=== PATIENT | female | born 1935 | race Caucasian/White ===

== ENCOUNTER 2016-08-02 11:25 | Outpatient (CLI) | payer MEDICARE, BC ==
[~2016-08-02] VITALS: Ht 172.7 cm; Wt 41.8 kg
--- NOTE | ~2016-08-02 | HEMODYNAMI ---
PATIENT:LORENE BRINK MEDICAL RECORD: [id number] : 31 LOCATION:[facility] ADMISSION DATE: 08/02/16 Generatedon:08/02/201614:35 Patient name: LORENE BRINK Patient #: [id number] SSN: : 1935 Date of study: 08/02/2016 Page: Of Hemodynamic Procedure Report Patient Data Patient Demographics Procedure consent was obtained First Name: LORENE Gender: Female Last Name: KEENA : 1935 [facility] Initial: STACY Age: 81 year(s) Patient #: [id number] Race: Unknown Additional ID: [id number] Contact details [address]: [address] [place] [address] State: [place] City: [place] Zip code: [address] Past Medical History Allergies: No known allergies Admission Admission Data Admission Date: 08/02/2016 Admission Time: 11:25 Admit Source: Other Insurance Payor: Private health insurance, Medicare Height (in.): 68 BSA: 1.47 (m2) Height (cm.): 172.72 BMI: 14.02 (kg/m2) Weight (lbs.): 92.18 Weight (kg.): 41.81 Lab Results Lab Result Date: 08/02/2016 Lab Result Time: 0:00 Coagulation Name Units Result Min Max INR units 1.27 --(----)-* 0.85 1.17 PT sec 31.6 --(----)-* 11.6 15 Procedure Procedure Types Cath Procedure Diagnostic Procedure PPM/ICD PPM Generator Exg. Single Procedure Description Procedure Date Procedure Date: 08/02/2016 Procedure Start Time: 14:16 Procedure End Time: 14:34 Procedure Staff Name Function Amadou Munoz MD Performing Physician Tom Shaw MD Performing Physician Gamal Pineda RT Scrub Prince Matias RT Scrub Brissa Finch RN Nurse Ashkan Robbins RT Monitor Abraham Waite RN Radar Repairer Procedure Data Cath Procedure Fluoroscopy Diagnostic fluoroscopy Total fluoroscopy Time: 0 time: 0 min min Diagnostic fluoroscopy Total fluoroscopy dose: 0 dose: 0 mGy mGy Contrast Material Contrast Material Type Amount (ml) Isovue 300 0 Estimated blood loss: 5 ml Procedure Complications No complications Procedure Medications Medication Administration Route Dosage Oxygen NC 3 l/min Lidocaine 1% with added to field 20 ml Epi Bupivacaine 0.5% S.Q. 10 ml Ancef (1Gm/50ml NS) I.V.P.B 1 g Ancef Irrigation Topical 1 g (1gm/500ml NS) Versed I.V. 0.5 mg Fentanyl I.V. 25 mcg Versed I.V. 0.5 mg Fentanyl I.V. 25 mcg Oxygen NC 3 Oxygen NC 3 l/min Hemodynamics Rest BSA: 1.47 (m2) O2 Consumption: Estimated: 142.6 (ml/min) O2 Consumption indexed: Estimated:97.01 (ml/min/m) Heart Rate: 90 (bpm) Snapshots Pre Cath Intra NCS Post Cath Vital Signs Time Heart Resp SPO2 etCO2 [id number] NIBP (mmHg) Rhythm Pain Sedation Rate (ipm) (%) (mmHg) (mmHg) Status Level (bpm) 14:09:29 89 29 96 0 0 134/77(93) NSR 0 (11) 10(A) , No pain 14:12:25 95 27 92 0 0 133/80(107) NSR 0 (11) 10(A) , No pain 14:16:31 98 22 92 0 0 125/80(106) NSR 0 (11) 10(A) , No pain 14:20:36 85 18 91 0 0 126/69(94) NSR 0 (11) 10(A) , No pain 14:24:38 94 22 96 0 0 128/84(104) NSR 0 (11) 10(A) , No pain 14:28:44 97 18 98 0 0 123/71(98) NSR 0 (11) 10(A) , No pain 14:32:46 90 27 97 0 0 131/75(102) NSR 0 (11) 10(A) , No pain Medications Time Medication Route Dose Verified Delivered Reason Notes Eff ectiveness by by 14:00:12 Ancef I.V.P.B 1 g Tom Brumfield used for (1Gm/50ml Valeria Finch refrigerator mover NS) 14:07:45 Oxygen NC 3 l/min Yazidi Buffie used for Valeria Finch refrigerator mover 14:07:52 Lidocaine added 20 ml Tom charles local 1% with Epi to Valeria Shaw MD anesthetic field 14:08:02 Bupivacaine S.Q. 10 ml Tom Santos for local 0.5% Valeria Shaw MD anesthetic 14:08:20 Ancef Topical 1 g Yazidi Buffie used for Irrigation Valeria Finch RN procedure (1gm/500ml NS) 14:16:08 Versed I.V. 0.5 mg Yazidi Buffie for Valeria Finch RN sedation 14:16:13 Fentanyl I.V. 25 mcg Yazidi Buffie for Valeria Finch RN sedation 14:19:29 Oxygen NC 3 Yazidi Buffie used for l/min-off Valeria Finch RN procedure 14:22:39 Oxygen NC 3 l/min Yazidi Buffie used for Valeria Finch refrigerator mover 14:24:15 Versed I.V. 0.5 mg Yazidi Buffie for Valeria Finch RN sedation 14:24:18 Fentanyl I.V. 25 mcg Yazidi Buffie for Valeria Finch RN sedation Procedure Log Time Note 13:15:28 Abraham Waite RN sent for patient. Start room use. 13:49:35 Informed consent obtained and on chart 13:53:35 Time tracking: Regular hours 13:53:38 Plan of Care:Hemodynamics will remain stable., Cardiac rhythm will remain stable., Comfort level will be maintained., Respiratory function will remain adequate., Patient/ family verbilizes understanding of procedure., Procedure tolerated without complication., Recovers from procedure without complications.. 13:53:44 Patient received from Outpatients to [facility] 2 Alert and oriented. Tansferred to table in Supine position. 13:53:45 Warm blankets applied, and jovanni hugger turned on for patient comfort. 13:53:45 Correct patient and procedure confirmed by team. 13:53:46 ECG and BP/O2 sat monitors applied to patient. 14:00:12 Ancef (1Gm/50ml NS) 1 g I.V.P.B was given by Brissa Finch RN; used for procedure; 14:07:45 Oxygen 3 l/min NC was given by Brissa Finch RN; used for procedure; 14:07:52 Lidocaine 1% with Epi 20 ml added to field was given by Tom Shaw MD; for local anesthetic; 14:08:02 Bupivacaine 0.5% 10 ml S.Q. was given by Tom Shaw MD; for local anesthetic; 14:08:20 Ancef Irrigation (1gm/500ml NS) 1 g Topical was given by Brissa Finch RN; used for procedure; 14:11:29 Vital chart was started 14:11:32 Baseline sample Acquired. 14:11:40 Rhythm: paced 14::44 Pre-procedure instructions explained to patient. 14::44 Pre-op teaching completed and patient verbalized understanding. 14:11:45 Family in waiting room. 14:11:46 Patient NPO since Midnight. 14:11:52 Patient allergic to No known allergies 14:11:54 Is the patient allergic to Iodine/contrast media? No. 14:12:32 Is patient on blood thinner?Yes 14:12:35 ACC The patient was administered the following blood thiners within the last 24 hours: Coumadin 14:12:41 Previous problem with sedation/anesthesia? No ? 14:12:42 Snore? No 14:12:43 Sleep apnea? No 14:12:45 Deviated septum? No 14:12:45 Opens mouth fully? Yes 14:12:46 Sticks out tongue? Yes 14:12:47 Airway obstruction? No ? 14:12:52 Dentures? Yes in tight 14:12:59 Patient pain scale 0/10 ?. 14:13:16 IV patent on arrival in left hand with 0.9% NaCl at [facility]. 14:14:47 Lab Result : PT 31.6 sec 14:14:47 Lab Result : INR 1.27 units 14:14:50 Lab results completed and on chart. 14:14:55 Right chest area was prepped with chlora-prep and draped in sterile fashion 14:14:57 Alarms reviewed by R. N. 14:14:58 Sharps counted by scrub and verified by R.N. 14:14:59 --------ALL STOP TIME OUT------ 14:14:59 Final Timeout: patient, procedure, and site verified with staff and physician. All members of the team are in agreement. 14:15:04 Right chest site verified by team. 14:15:07 Physical assessment completed. ASA score P 3 - A patient with severe systemic disease as per Tom Shaw MD. 14:15:13 Sedation plan: IV Moderate Sedation Versed, Fentanyl, Lidocaine 14:15:19 Use device set Pacemaker Set 14:15:39 2.0 Ticron Multipack opened to sterile field. 14:15:51 5.0 Monocryl [id number] opened to sterile field. 14:16:02 3.0 Vicryl Multipack [id number] opened to sterile field. 14:16:03 Mepilex Dressing opened to sterile field. 14:16:08 Versed 0.5 mg I.V. was given by Brissa Finch RN; for sedation; 14:16:11 Procedure started. 14:16:12 Full Disclosure recording started 14:16:13 Fentanyl 25 mcg I.V. was given by Brissa Finch RN; for sedation; 14:17:22 [employer] financial services sales representative Aleks Maher present for procedure. 14:17:48 Pre sharps counted by scrub and verified by RN: Sutures: 14 Sponges: 5 Stick needles: 0 Skin needles: 2 Blade: 1 Cautery: 1 14:18:30 Grounding pad site Left thigh. 14:18:31 Grounding pad site free from injury. 14:18:36 Lidocaine 1% w/epi to right subclavicular area by Tom Shaw MD. 14:18:39 Incision made to right subclavicular area. 14:18:50 Generator pocket made/opened. 14:19:13 Medtronic Adapta PPM Single Generator opened to sterile field. 14:19:29 Oxygen 3 l/min-off NC was given by Brissa Finch RN; used for procedure; 14:19:53 Previous PPM was a dual lead. Pt is being switched to a sinlge lead. Atrial lead will be capped. 14:20:26 PPM Dual was removed.. 14:20:30 PPM Single was inserted subcutaneously to right chest. 14:22:17 Device pocket was irrigated with Ancef. 14:22:39 Oxygen 3 l/min NC was given by Brissa Finch RN; used for procedure; 14:23:22 Generator was sutured in place with 2-0 ticron. 14:23:32 Subcutaneous closure was completed with 3-0 vicryl. 14:23:40 Skin closure was completed with 5-0 monocryl. 14:24:15 Versed 0.5 mg I.V. was given by Brissa Finch RN; for sedation; 14:24:18 Fentanyl 25 mcg I.V. was given by Brissa Finch RN; for sedation; 14:28:27 Parameters-- Generator: Mode: VVIR. Lower Rate: 60bpm. Upper Rate: 130bpm. 14:30:21 Parameters--Ventricular P/R Wave: 12.7mV. Current: 0.5mA; Threshold: .7V; Impedence: 619OHMS. 14:30:24 Rt Chest incision was dressed with Mepilex dressing. 14:31:00 H&P Date Dictated: 07/26/2016 Within 30 days and on chart., H&P Addendum completed by physician on day of procedure. (MUST COMPLETE FOR ALL OUTPATIENTS). 14:31:04 Admit Source: Other 14:31:21 Patient Height : 68 inches 14:31:26 Patient Weight : 92.18 lbs 14:31:40 Insurance Payor : Private health insurance, Medicare 14:31:56 Procedure ended.(Physican Out) 14:33:01 Fluoroscopy time 00.00 minutes. 14:33:03 Fluoroscopy dose: 0 mGy 14:33:03 Flurop Dose total: 0 14:33:06 Contrast amount:Isovue 300 0ml. 14:33:07 Sharps counted by scrub and verified by R.N. 14:33:13 Insertion/operative site no bleeding no hematoma. 14:33:18 Post-op/insertion site Right Chest area dressed using a Mepilex dressing. 14:33:32 Post Chest area:stable, clean and dry 14:33:34 Post Procedure Pulses reassessed and unchanged 14:33:38 Post-procedure physical assessment completed. ASA score P 3 - A patient with severe systemic disease as per Tom Shaw MD. 14:33:40 Post procedure rhythm: unchanged. 14:33:42 Estimated blood loss: 5 ml 14:33:44 Post procedure instruction explained to patient.Patient verbalizes understanding. 14:33:44 Patient needs reinforcement of post procedure teaching. 14:34:22 Procedure and supply charges have been captured, reviewed, submitted and are correct. 14:34:24 Procedure Complication : No complications 14:34:32 Vital chart was stopped 14:34:32 See physician's report for complete and final results. 14:34:48 Report given to Post Procedure Room. 14:34:51 Patient transfered to Post Procedure Room with Stretcher. 14:34:53 Procedure ended. 14:34:53 Full Disclosure recording stopped 14:34:57 End room use (Document Last) Device Usage Item Name Manufacture Quantity Catalog Hospital Part Current Minimal Lo t# / Number Charge Number Stock Stock Serial# Code 2.0 Ethicon 0 [id number] 5 Ticron Multipack 5.0 Ethicon 1 [id number] 5 Monocryl [id number] 3.0 Ethicon 1 [id number] [id number] 5 Vicryl Multipack [id number] Mepilex Schroeder 1 [id number] 5 [facility] Medtronic Medtronic 1 [id number] 5 Adapta PPM Single Generator Signature Audit [place] Stage Time Signature Unsigned Intra-Procedure 08/02/2016 Gamal Pineda 2:35:16 PM RT(R) Signatures Monitor : Ashkan Robbins RT Signature : Date : Time : [place] [id number] [facility] [place] [address]
[~2016-08-02 11:25] MED LIST: BAYER CHEWABLE81 MG PO; BREO ELLIPTA 11 EACH INH; COUMADIN1 MG PO; COUMADIN3 MG PO; GABAPENTIN100 MG PO; HYDROCODON-ACE1 EAC7 PO; HYDROCODONE-APA1 TAB PO; IPRAT-ALBUT 0.5-3 ML UPD; K-TAB10 MEQ PO; LASIX40 MG PO; LASIX80 MG PO; LEXAPRO10 MG PO; LEXAPRO5 MG PO; LOPRESSOR25 MG PO; METOPROLOL TAR100 M1 PO; METOPROLOL TART25 MG PO; NAMENDA5 MG PO; PULMICORT0.5 MG/21 UPD; RESTORIL7.5 MG PO; SYNTHROID100 MCG PO; TESSALON PERLE100 MG PO; TOPROL XL50 MG PO
[2016-08-02] MEDS ORDERED: PREDNISONE2.5 MG PO (12:49)
[2016-08-02 13:01] VITALS: BP 132/48; Ht 172.7 cm; Wt 41.8 kg
[2016-08-02 13:15] LABS: HEMATOCRIT 40.6 % (36.0-48.0); HEMOGLOBIN 12.6 g/dL (12-16); MCH 28.4 pg (26.0-34.0); MCV 91.6 fL (80.0-100.0); MEAN PLATELET VOLUME 9.3 fL (7.4-10.4); RBC 4.43 10x6/uL (4.00-5.40); RDW 15.5 % (11.5-14.5); WBC 9.3 10x3/uL (4.8-10.8)
[2016-08-02 13:19] LABS: CALC OSMOLALITY 284 mosm/kg (275-300); CARBON DIOXIDE 35.2 mmol/L (21.0-32.0); CHLORIDE - SERUM 101 mmol/L (98-107); CREATININE - SERUM 0.5 mg/dL (0.6-1.3); GLUCOSE 96 mg/dL (74-106); POTASSIUM - SERUM 5.1 mmol/L (3.5-5.1); SODIUM 140 mmol/L (136-145); UREA NITROGEN 29 mg/dL (7-18); eGFR NON AFRICAN AMERICAN > 90 mL/min (90-120)
[2016-08-02 13:59] LABS: APTT 31.6 SECONDS (22.8-39.4); INR 1.27 (0.85-1.17); PROTIME 15.8 SECONDS (11.6-15.0)
[2016-08-02] MEDS ORDERED: HYDROCODONE-APA1 TAB PO (14:31)
--- NOTE | 2016-08-02 14:47 | NUR ---
REC'D TO CATH RECOVERY, ALERT, ORIENTED X4. ATTACHED TO MONITORS. VITAL SIGNS STABLE. RIGHT CHEST DRESSING, CDI. O2 @ 3L NASAL CANNULA, NO DISTRESS NOTED.
--- NOTE | 2016-08-02 15:02 | NUR ---
RESTING IN BED, VITAL SIGNS STABLE. RIGHT CHEST DRSG CDI. NO C/O NAUSEA OR CHEST PAIN. WILL CONTINUE TO MONITOR.
--- NOTE | 2016-08-02 15:32 | NUR ---
RESTING IN BED WITH EYES CLOSED.. VSS, RIGHT CHEST DRSG CDI. WILL CONTINUE TO MONITOR.
--- NOTE | 2016-08-02 16:10 | NUR ---
HOB ELEVATED 45 DEGREES.. PT SLEEPY BUT RESPONDS TO VERBAL STIMULI. VSS. WILL CONTINUE TO MONITOR.
--- NOTE | 2016-08-02 16:12 | NUR ---
IV D/C'D WITH CATHETER INTACT. DISCHARGE INSTRUCTIONS GIVEN. PT AND FAMILY MEMBER VERBALIZED UNDERSTANDING.
--- NOTE | 2016-08-02 16:17 | NUR ---
UP TO SIDE OF BED TO GET DRESSED.
--- NOTE | 2016-08-03 13:46 | OP ---
PATIENT NAME: LORENE BRINK MEDICAL RECORD: [id number] :31 LOCATION:D.CAT ADMISSION DATE: SURGEON: MARLA ROMERO MD DATE OF OPERATION: 08/02/2016 PREOPERATIVE DIAGNOSES: 1. End-of-life generator. 2. Atrial fibrillation. 3. Congestive heart failure. 4. Hypertension. 5. Protein deficient malnutrition. POSTOPERATIVE DIAGNOSES: 1. End-of-life generator. 2. Atrial fibrillation. 3. Congestive heart failure. 4. Hypertension. 5. Protein deficient malnutrition. PROCEDURE: Right subclavian vein pacemaker generator exchange. SURGEON: Marla Romero MD REPORT OF PROCEDURE: The patient's chest was prepped and draped in sterile fashion. A total of 17 mL 1% lidocaine mixed with 0.25% Marcaine were infused into the surrounding tissues. A skin incision was made overlying the pacemaker. The pacemaker was eviscerated from the wound. A dual lead pacemaker was present. We disconnected the pacemaker leads. We capped off the atrial lead and then placed a single lead pacemaker into the ventricular lead dysfunction appropriately. We sutured the pacemaker down using 0 Ti-Cron. The subcutaneous tissues were irrigated out and then reapproximated with interrupted 3-0 Vicryls and the skin was closed with running subcutaneous 5-0 Monocryl. COMPLICATIONS: None. CONDITION: Stable. ANESTHESIA: Local MAC. BLOOD LOSS: Minimal. TRANSINT:[id number] Voice Confirmation ID: [id number] DOCUMENT ID: [id number] MARLA ROMERO MD at 1346 CC: RODRIGUE GONSALEZ M.D. [id number] DICTATION DATE: 08/02/16 1434 NOTCH GRINDER: 08/02/16 1456 DEP CLI 08/02/16 [place] [id number] [place] [id number]
== END 2016-08-02 16:20 | disposition home or self-care (01) ==
LOC: D.CATH 11:25
PROVIDERS: Internal Medicine Cardiovascular Disease
DX: Z45.010 Encounter for checking and testing of cardiac pacemaker pulse generator [battery] (principal); I48.91 Unspecified atrial fibrillation; I50.9 Heart failure, unspecified; I10 Essential (primary) hypertension; E46 Unspecified protein-calorie malnutrition; Z68.1 Body mass index [BMI] 19.9 or less, adult

== ENCOUNTER 2016-08-03 09:10 | Emergency (ER) | payer MEDICARE, BC ==
[2016-08-02 13:01] VITALS: BMI 14.0
[~2016-08-03 09:10] MED LIST changes: +PREDNISONE2.5 MG PO
[2016-08-03 10:40] LABS: BASOPHILS 0.2 % (0.0-2.0); EOSINOPHILS 0.7 % (0-7); HEMATOCRIT 35.7 % (36.0-48.0); IMMATURE GRANULOCYTES 0.2 % (0-5); LYMPHOCYTES 16.4 % (15-50); MCH 28.1 pg (26.0-34.0); MCHC 30.8 g/dL (31.0-37.0); MCV 91.3 fL (80.0-100.0); MEAN PLATELET VOLUME 9.1 fL (7.4-10.4); MONOCYTES 13.1 % (2-11); NEUTROPHILS 69.4 % (40-80); PLATELET COUNT 165 10x3/uL (130-400); RBC 3.91 10x6/uL (4.00-5.40); RDW 15.5 % (11.5-14.5)
[2016-08-03 10:49] LABS: CARBON DIOXIDE 36.2 mmol/L (21.0-32.0); CHLORIDE - SERUM 102 mmol/L (98-107); GLUCOSE 110 mg/dL (74-106); SODIUM 141 mmol/L (136-145)
[2016-08-03 10:50] LABS: CALC OSMOLALITY 284 mosm/kg (275-300); CREATININE - SERUM 0.7 mg/dL (0.6-1.3); POTASSIUM - SERUM 4.1 mmol/L (3.5-5.1); UREA NITROGEN 20 mg/dL (7-18); eGFR NON AFRICAN AMERICAN 85 mL/min (90-120)
[2016-08-03 10:51] LABS: APTT 31.5 SECONDS (22.8-39.4); INR 1.18 (0.85-1.17); PROTIME 14.9 SECONDS (11.6-15.0)
== END 2016-08-03 11:53 | disposition home or self-care (01) ==
LOC: D.ER 09:10
PROVIDERS: Physician Assistant Medical
DX: S80.812A Abrasion, left lower leg, initial encounter (principal); X58.XXXA Exposure to other specified factors, initial encounter; Y93.84 Activity, sleeping; Y92.013 Bedroom of single-family (private) house as the place of occurrence of the external cause; I50.9 Heart failure, unspecified; Z95.2 Presence of prosthetic heart valve; Z79.01 Long term (current) use of anticoagulants; J44.9 Chronic obstructive pulmonary disease, unspecified; F03.90 Unspecified dementia, unspecified severity, without behavioral disturbance, psychotic disturbance, mood disturbance, and anxiety; E03.9 Hypothyroidism, unspecified; Z95.0 Presence of cardiac pacemaker